=== PATIENT | female | born 1945 | race Caucasian/White ===

== ENCOUNTER 2018-11-07 08:15 | Inpatient (IN) | payer OTHER, BC ==
[2018-11-07] MEDS ORDERED: VANCOMYCIN 1 GM in D5W (PRE-DOCKED) 1,000 MG/250 ML IVPB ONE (08:31)
[2018-11-07] MEDS ORDERED: AMPICILLIN NA/SULBACTAM NA 3 GM in SODIUM CHLORIDE 100 ML IVPB ONE (08:31)
[2018-11-07] MEDS ORDERED: HEMOQUE TEST 1 EACH EACH ONE ×2 (08:35→08:45)
[2018-11-07] MEDS ORDERED: HEMOQUE CONTROL SOLUTION ONE (08:44)
[2018-11-07 08:59] LABS: BASO % 0.9 % (0-2.0); EOS % 0.2 % (0-4.5); HEMATOCRIT 42.7 % (32.4-45.2); HEMOGLOBIN 14.1 GM/dl (10.7-15.3); LYMPH % 12.4 % (8-40); MCH 29.9 pg (25.7-33.7); MEAN CELL VOLUME 90.7 fl (80-96); MEAN PLT VOLUME 8.6 fl (7.5-11.1); MONO % 6.9 % (3.8-10.2); NEUT % 79.6 % (42.8-82.8); PLATELET COUNT 277 K/MM3 (134-434); RBC 4.71 M/mm3 (3.60-5.2); RDW 13.2 % (11.6-15.6); WHITE BLOOD COUNT 24.8 K/mm3 (4.0-10.8)
[2018-11-07] MEDS ORDERED: AMPICILLIN NA/SULBACTAM NA 3 GM VIAL ONE (09:02)
[2018-11-07] MEDS ORDERED: VANCOMYCIN 1,000 MG VIAL (RESTRICTED TO ID ONLY) ONE (09:02)
[2018-11-07 09:11] LABS: ALK PHOS 97 U/L (32-92); ANION GAP 12 MMOL/L (8-16); BILIRUBIN,TOTAL 0.9 mg/dl (0.2-1.0); BLOOD UREA NITROGEN 11 mg/dl (7-18); CALCIUM 9.5 mg/dl (8.4-10.2); CHLORIDE 96 mmol/L (98-107); CO2 24 mmol/L (22-28); GLUCOSE,RANDOM 249 mg/dl (74-106); POTASSIUM 4.3 mmol/L (3.5-5.1); SGOT/AST 22 U/L (10-42); SGPT/ALT 22 U/L (10-40); SODIUM 132 mmol/L (136-145); TOT PROT 7.6 g/dl (6.4-8.3)
--- NOTE | 2018-11-07 09:36 | PDOC ---
History of Present Illness - General Chief Complaint: Wound Stated Complaint: boil on upper lip,cellulitis face Time Seen by Provider: 11/07/18 08:19 History Source: Patient, Family Exam Limitations: No Limitations - History of Present Illness Initial Comments: 11/07/18 09:30 CHIEF COMPLAINT: Infection on the upper lip for 4 days HISTORY OF PRESENT ILLNESS: 73-year-old female with a history of diabetes and stage I lung cancer status post resection. Patient developed a pimple on her right upper lip on . The swelling got worse, so yesterday she went to urgent care and was told of an abscess on her upper lip. She was started on Bactrim DS twice a day and was advised to go for drainage if the problem got worse. She presents today to the emergency department with progressive swelling of her upper lip, now extending to the right face. There is no difficulty breathing or swallowing. The abscess on her upper lip is tender to the touch and painful. There is no fever and no chills. The patient has diabetes and her morning blood sugar usually ranges from 100 to a little over 200. Over the last couple of days it has been around 200, likely in the setting of infection. She continues to take her oral agents for diabetes. She took 2 doses of the Bactrim yesterday, but has not yet taken it today. REVIEW OF SYSTEMS: GENERAL/CONSTITUTIONAL: No fever or chills. No weakness. No weight change. HEAD, EYES, EARS, NOSE AND THROAT: No change in vision. No ear pain or discharge. No sore throat. + Positive upper lip pain and facial swelling. See history of present illness. CARDIOVASCULAR: No chest pain or shortness of breath. RESPIRATORY: No cough, wheezing, or hemoptysis. + Positive history of stage I lung cancer, status post right lung partial resection in 2018. Being followed closely by her oncologist. Scheduled for follow-up scans. GASTROINTESTINAL: No nausea, vomiting, diarrhea or constipation. No rectal bleeding. GENITOURINARY: No dysuria, frequency, or change in urination. MUSCULOSKELETAL: No joint or muscle swelling or pain. No neck or back pain. SKIN AND BREASTS: No rash or easy bruising. + Positive facial abscess, see history of present illness. NEUROLOGIC: No headache, vertigo, loss of consciousness, or loss of sensation. No cranial nerve symptoms. PSYCHIATRIC: No depression or anxiety. ENDOCRINE: No increased thirst. No abnormal weight change. HEMATOLOGIC/LYMPHATIC: No anemia, easy bleeding, or history of blood clots. ALLERGIC/IMMUNOLOGIC: No hives or skin allergy. No latex allergy. Past History - Past Medical History Allergies/Adverse Reactions: Allergies Allergy/AdvReac Type Severity Reaction Status Date / Time aspirin AdvReac Severe Difficulty Verified 11/07/18 09:53 Breathing codeine AdvReac Severe Verified 11/07/18 09:53 peanut AdvReac Severe Difficulty Verified 11/07/18 09:53 Breathing nutrisweet AdvReac Severe Difficulty Uncoded 11/07/18 09:53 Breathing Home Medications: Ambulatory Orders Atenolol [Tenormin -] 25 mg PO DAILY 11/07/18 Cholecalciferol (Vitamin D3) [Vitamin D3] 1,000 unit PO DAILY 11/07/18 Escitalopram Oxalate [Lexapro -] 10 mg PO DAILY 11/07/18 Metformin HCl [Glucophage] 500 mg PO BID 11/07/18 Omeprazole 40 mg PO DAILY 11/07/18 Pravastatin Sodium [Pravachol] 40 mg PO DAILY 11/07/18 Sitagliptin Phosphate [Januvia] 100 mg PO DAILY 11/07/18 Sulfamethoxazole/Trimethoprim [Bactrim Ds Tablet] 1 each PO BID 11/07/18 Verapamil HCl [Verapamil ER] 2 tab PO DAILY 11/07/18 Asthma: (mediastinal mass.) Cancer: (malignant neoplasm of unsp part of bronchus or lung) Cardiac Disorders: Yes (ABNORMAL EKG,tachycardia) COPD: No Diabetes: Yes GI Disorders: Yes (GERD,benign neoplasm of stomach) HTN: Yes Psychiatric Problems: Yes (anxiety,depression,adj disorder) Lung CA: Yes (status post resection of stage I cancer) Other medical history: lung nodules multiple,,chronic cough,chronic rhinosnusitis - Suicide/Smoking/Psychosocial Hx Smoking History: Never smoked Hx Alcohol Use: No Drug/Substance Use Hx: No *Physical Exam - Vital Signs Last Vital Signs Temp Pulse Resp BP Pulse Ox 98.2 F 83 18 135/66 99 11/07/18 08:16 11/07/18 08:16 11/07/18 08:16 11/07/18 08:16 11/07/18 08:16 - Physical Exam Comments: 11/07/18 09:34 GENERAL: The patient is awake, alert, and fully oriented, in no acute distress. HEAD: Normal with no signs of trauma. EYES: Pupils equal, round and reactive to light, extraocular movements intact, sclera anicteric, conjunctiva clear. ENT: Ears normal, nares patent, oropharynx clear without exudates. Moist mucous membranes. + The upper lip has an indurated abscess on the right side with induration extending from the midline to the corner of the mouth and up to the nasal ala. There is right cheek swelling without any induration or fluctuance. NECK: Normal range of motion, supple without lymphadenopathy, JVD, or masses. LUNGS: Breath sounds equal, clear to auscultation bilaterally. No wheezes, and no crackles. HEART: Regular rate and rhythm, normal S1 and S2 without murmur, rub or gallop. ABDOMEN: Soft, nontender, normoactive bowel sounds. No guarding, no rebound. No masses. EXTREMITIES: Normal range of motion, no edema. No clubbing or cyanosis. No cords, erythema, or tenderness. NEUROLOGICAL: Cranial nerves II through XII grossly intact. Normal speech, normal gait. PSYCH: Normal mood, normal affect. SKIN: Warm, Dry, normal turgor, no rashes or lesions noted. + Positive redness of the right face and swelling of the right upper lip with focal right lip abscess. Moderate Sedation - Procedure Monitoring Vital Signs: Procedure Monitoring Vital Signs Temperature 98.2 F 11/07/18 08:16 Pulse Rate 83 11/07/18 08:16 Respiratory Rate 18 11/07/18 08:16 Blood Pressure 135/66 11/07/18 08:16 O2 Sat by Pulse Oximetry (%) 99 11/07/18 08:16 Heart Score/ECG Review - ECG Impressions Comment:: 11/07/18 10:02 Twelve-lead EKG shows normal sinus rhythm at a rate of 64 bpm. The axis is normal. The intervals are normal. There is poor R wave progression from V1 to V3. There are no acute ST elevations or depressions. There are no abnormal T waves. In comparison with prior EKG from 04/23/2010, there are no acute changes. Impression: Normal sinus rhythm with poor R-wave progression, no new acute findings. ED Treatment Course - LABORATORY CBC & Chemistry Diagram: 11/07/18 08:40 11/07/18 08:40 - ADDITIONAL ORDERS Additional order review: Laboratory Results 11/07/18 11/07/18 08:52 08:40 Sodium 132 L Potassium 4.3 Chloride 96 L Carbon Dioxide 24 Anion Gap 12 BUN 11 Creatinine 1.0 Creat Clearance w eGFR 54.35 POC Glucometer [phone] Random Glucose 249 H Calcium 9.5 Total Bilirubin 0.9 AST 22 ALT 22 Alkaline Phosphatase 97 H Total Protein 7.6 Albumin 4.0 11/07/18 11/07/18 08:52 08:40 RBC 4.71 MCV 90.7 MCHC 33.0 RDW 13.2 MPV 8.6 Neutrophils % 79.6 Lymphocytes % 12.4 Monocytes % 6.9 Eosinophils % 0.2 Basophils % 0.9 POC Glucometer [phone] - Medications Given in the ED: ED Medications Discontinued Medications Generic Name Dose Route Start Last Admin Trade Name Freq PRN Reason Stop Dose Admin Ampicillin Sodium/Sulbactam 100 mls @ 200 mls/hr 11/07/18 08:31 11/07/18 09: 09 Sodium 3 gm/ Sodium Chloride IVPB 11/07/18 09:00 200 mls/hr ONCE ONE Administration Medical Decision Making - Medical Decision Making 11/07/18 09:36 Patient is a 73-year-old diabetic who presents with a right upper lip abscess that has failed oral antibiotics with Bactrim DS. She presents now with progressive swelling of the lip and the right face. Her diabetes increases the risks of this infection, along with the risks of the triangle of danger for infection of the face. Labs drawn to check white count and glucose. Patient failed oral antibiotics with progression. IV antibiotics ordered with Unasyn and vancomycin. Plastic surgery called and has arrived in the ED for incision and drainage of the abscess. Wound culture will be done of the pus at the time of the procedure. Given the patient's progression on oral antibiotics, she will be admitted for observation and IV antibiotics. Wound culture performed and sent to the lab. No blood cultures or lactate done because the likelihood of bacteremia is much lower than the likelihood of false positive blood cultures. 11/07/18 09:52 Labs notable for glucose of 249 and WBC of 24k, consistent with bacterial abscess and facial cellulitis. Anion gap is normal at 12. Sodium is mildly low and will be followed. I and D was completed by plastic surgeon Dr. Freeman, and all are in agreement that admission is indicated for facial cellultitis with swelling in the danger zone of the face that failed oral antibiotics. Laboratory Results - last 24 hr 11/07/18 11/07/18 11/07/18 08:40 08:40 08:52 WBC 24.8 H RBC 4.71 Hgb 14.1 Hct 42.7 MCV 90.7 MCH 29.9 MCHC 33.0 RDW 13.2 Plt Count 277 MPV 8.6 Absolute Neuts (auto) 19.8 Neutrophils % 79.6 Lymphocytes % 12.4 Monocytes % 6.9 Eosinophils % 0.2 Basophils % 0.9 Sodium 132 L Potassium 4.3 Chloride 96 L Carbon Dioxide 24 Anion Gap 12 BUN 11 Creatinine 1.0 Creat Clearance w eGFR 54.35 POC Glucometer [phone] Random Glucose 249 H Calcium 9.5 Total Bilirubin 0.9 AST 22 ALT 22 Alkaline Phosphatase 97 H Total Protein 7.6 Albumin 4.0 *DC/Admit/Observation/Transfer Diagnosis at time of Disposition: Facial abscess, Facial cellulitis - Discharge Dispostion Condition at time of disposition: Stable Decision to Admit order: Yes Decision to Admit order Date/Time: 11/07/18 10:[address] Gil, endorsed to hospitalist [employer]ADER - Referrals - Patient Instructions - Post Discharge Activity
[2018-11-07] MEDS: SODIUM CHLORIDE 1,000 ML IV SCH (11:13)
[2018-11-07 11:58] VITALS: BMI 32.8
[2018-11-07] MEDS: INSULIN SLIDING SCALE (NOVOLOG) 1 VIAL SQ SCH ×3 (12:07→21:27)
[2018-11-07] MEDS: HEPARIN NA (PORCINE) 5,000 UNITS/ML 1ML VIAL SQ SCH ×2 (12:08→21:28)
[2018-11-07] MEDS ORDERED: INSULIN (LEVEMIR) 100 UNITS/ML UNITS SQ ONE (12:33)
--- NOTE | 2018-11-07 12:56 | HP ---
CHIEF COMPLAINT: right facial swelling, PCP: Dr. Kurtz HISTORY OF PRESENT ILLNESS: Bettina Leigh is a 73 yr old F, medical condition DM, HTN, anxiety, stage 1 lung cancer, HLD presented to ED after waking up this morning, had right sided facial swelling and redness. pt reports right upper lip pimple that started on , went to UC yesterday and was prescribed Bactrim. pt denies fevers, chills , itching or pain. Seen by Dr. Freeman, Plastics, abscess I&D in ED, wound cultures sent to lab, pt admitted under obs for IV ABT, pt clinically feeling well ER course was notable for: (1)Abscess of right upper lip drained (2)WBC 24.8 (3)no fever Recent Travel: PAST MEDICAL HISTORY:DM, Stage 1 Lung Ca, anxiety PAST SURGICAL HISTORY:lung resection summer 2017 Social History: Smoking:denies Alcohol:denies Drugs: denies Family History: Allergies aspirin Adverse Reaction (Severe, Verified 11/07/18 09:53) Difficulty Breathing throat closes codeine Adverse Reaction (Severe, Verified 11/07/18 09:53) PALPITATIONS peanut Adverse Reaction (Severe, Verified 11/07/18 09:53) Difficulty Breathing THROAT CLOSES S nutrisweet Adverse Reaction (Severe, Uncoded 11/07/18 09:53) Difficulty Breathing THROAT CLOSES HOME MEDICATIONS: Home Medications Medication Instructions Recorded Atenolol [Tenormin -] 25 mg PO DAILY 11/07/18 Cholecalciferol (Vitamin D3) 1,000 unit PO DAILY 11/07/18 [Vitamin D3] Escitalopram Oxalate [Lexapro -] 10 mg PO DAILY 11/07/18 Metformin HCl [Glucophage] 500 mg PO BID 11/07/18 Omeprazole 40 mg PO DAILY 11/07/18 Pravastatin Sodium [Pravachol] 40 mg PO DAILY 11/07/18 Sitagliptin Phosphate [Januvia] 100 mg PO DAILY 11/07/18 Sulfamethoxazole/Trimethoprim 1 each PO BID 11/07/18 [Bactrim Ds Tablet] Verapamil HCl [Verapamil ER] 2 tab PO DAILY 11/07/18 REVIEW OF SYSTEMS CONSTITUTIONAL: Absent: fever, chills, diaphoresis, generalized weakness, malaise, loss of appetite, weight change HEENT: Absent: rhinorrhea, nasal congestion, throat pain, throat swelling, difficulty swallowing, mouth swelling, ear pain, eye pain, visual changes CARDIOVASCULAR: Absent: chest pain, syncope, palpitations, irregular heart rate, lightheadedness , peripheral edema RESPIRATORY: Absent: cough, shortness of breath, dyspnea with exertion, orthopnea, wheezing, stridor, hemoptysis GASTROINTESTINAL: Absent: abdominal pain, abdominal distension, nausea, vomiting, diarrhea, constipation, melena, hematochezia GENITOURINARY: Absent: dysuria, frequency, urgency, hesitancy, hematuria, flank pain, genital pain MUSCULOSKELETAL: Absent: myalgia, arthralgia, joint swelling, back pain, neck pain SKIN: swelling and redness right side of face, upper lip no itching or pain Absent: rash, itching, pallor HEMATOLOGIC/IMMUNOLOGIC: Absent: easy bleeding, easy bruising, lymphadenopathy, frequent infections ENDOCRINE: Absent: unexplained weight gain, unexplained weight loss, heat intolerance, cold intolerance NEUROLOGIC: Absent: headache, focal weakness or paresthesias, dizziness, unsteady gait, seizure, mental status changes, bladder or bowel incontinence PSYCHIATRIC: Absent: anxiety, depression, suicidal or homicidal ideation, hallucinations. PHYSICAL EXAMINATION Vital Signs - 24 hr 11/07/18 11/07/18 11/07/18 08:16 11:10 11:41 Temperature 98.2 F 98.9 F 99.2 F Pulse Rate 83 76 Pulse Rate [ 67 Left] Respiratory 18 18 Rate Blood Pressure 135/66 150/70 Blood Pressure 126/58 L [Right Arm] O2 Sat by Pulse 99 96 97 Oximetry (%) 11/07/18 12:30 Temperature 99.0 F Pulse Rate 89 Pulse Rate [ Left] Respiratory 18 Rate Blood Pressure 114/51 L Blood Pressure [Right Arm] O2 Sat by Pulse 99 Oximetry (%) GENERAL: Awake, alert, and fully oriented, in no acute distress. HEAD: Normal with no signs of trauma. EYES: Pupils equal, round and reactive to light, extraocular movements intact, sclera anicteric, conjunctiva clear. No lid lag. EARS, NOSE, THROAT: Ears normal, nares patent, oropharynx clear without exudates. Moist mucous membranes. NECK: Normal range of motion, supple without lymphadenopathy, JVD, or masses. LUNGS: Breath sounds equal, clear to auscultation bilaterally. No wheezes, and no crackles. No accessory muscle use. HEART: Regular rate and rhythm, normal S1 and S2 without murmur, rub or gallop. ABDOMEN: Soft, nontender, not distended, normoactive bowel sounds, no guarding, no rebound, no masses. No hepatomegaly or splenomegaly. MUSCULOSKELETAL: Normal range of motion at all joints. No bony deformities or tenderness. No CVA tenderness. UPPER EXTREMITIES: 2+ pulses, warm, well-perfused. No cyanosis. No clubbing. No peripheral edema. LOWER EXTREMITIES: 2+ pulses, warm, well-perfused. No calf tenderness. No peripheral edema. NEUROLOGICAL: Cranial nerves II-XII intact. Normal speech. Normal gait. PSYCHIATRIC: Cooperative. Good eye contact. Appropriate mood and affect. SKIN: right upper lip wound s/p I&D, Warm, dry, normal turgor, no rashes or lesions noted, normal capillary refill. Laboratory Results - last 24 hr 11/07/18 11/07/18 11/07/18 08:40 08:40 08:52 WBC 24.8 H RBC 4.71 Hgb 14.1 Hct 42.7 MCV 90.7 MCH 29.9 MCHC 33.0 RDW 13.2 Plt Count 277 MPV 8.6 Absolute Neuts (auto) 19.8 Neutrophils % 79.6 Lymphocytes % 12.4 Monocytes % 6.9 Eosinophils % 0.2 Basophils % 0.9 Sodium 132 L Potassium 4.3 Chloride 96 L Carbon Dioxide 24 Anion Gap 12 BUN 11 Creatinine 1.0 Creat Clearance w eGFR 54.35 POC Glucometer [phone] Random Glucose 249 H Calcium 9.5 Total Bilirubin 0.9 AST 22 ALT 22 Alkaline Phosphatase 97 H Total Protein 7.6 Albumin 4.0 ASSESSMENT/PLAN: Bettina Leigh is a 73 yr old F,medical condition DM, HTN, HLD, anxiety, stage 1 Lung cancer, admitted under observation for Admitting Diagnosis Right sided facial cellulitis Chronic problems HTN HLD DM Anxiety Stage 1 lung cancer A/P #Right sided facial cellulitis/ upper lip abscess -WBC 24.8, afebrile, -in ED Unasyn and Vanc given -will start Zosyn 3.375 q8hrs (unasyn on back order) -s/p I& D (Dr. Freeman) -wound culture pending -will check lactic #Hyponatremia -IVF -monitor BMP #DM, with hyperglycemia -hold home meds -ISC -Monitor BS -diabetic diet #HTN #HLD -on BB, Verapamil , statin #Stage 1 Lung Ca s/p resection -follows with Dr. Rodriguez -follow up outpt #Anxiety -on lexapro Full Code Dispo: requires inpatient treatment DVT prophlyaxis: Heparin SQ Visit type - Emergency Visit Emergency Visit: Yes ED Registration Date: 11/07/18 Care time: The patient presented to the Emergency Department on the above date and was hospitalized for further evaluation of their emergent condition. - New Patient This patient is new to me today: Yes Date on this admission: 11/07/18 - Critical Care Critical Care patient: No
[2018-11-07] MEDS: PANTOPRAZOLE 40 MG TABLET (FP) PO SCH (13:09)
[2018-11-07] MEDS ORDERED: PIPERACILLIN/TAZOBACTAM 3.375 GM VIAL IVPB ONE (17:10)
[2018-11-07] MEDS ORDERED: DEXTROSE 5%-WATER - 50 ML IVPB ONE (17:10)
[2018-11-07] MEDS: PIPERACILLIN/TAZOB 3.375 GM 3.375 GM in DEXTROSE 5%-WATER - 50 ML IVPB SCH (17:28)
--- NOTE | 2018-11-07 19:38 | EKG ---
Test Reason : Blood Pressure : / mmHG Vent. Rate : 064 BPM Atrial Rate : 064 BPM P-R Int : 148 ms QRS Dur : 084 ms QT Int : 454 ms P-R-T Axes : 039 050 068 degrees QTc Int : 468 ms NORMAL SINUS RHYTHM SEPTAL INFARCT (CITED ON OR BEFORE 24-JUL-2008) ABNORMAL ECG WHEN COMPARED WITH ECG OF 23-APR-2010 10:25, NO SIGNIFICANT CHANGE WAS FOUND Confirmed by CHANTELLE BRAGG, AURELIANO ([id number]) on 11/07/2018 7:37:53 PM Referred By: JUDY BALLARD Confirmed By:AURELIANO LOCKHART MD
[2018-11-07] MEDS ORDERED: AMPICILLIN NA/SULBACTAM NA 3 GM in SODIUM CHLORIDE 100 ML IVPB SCH (21:00)
[2018-11-07] MEDS: ATORVASTATIN CA 10 MG TABLET (FP) PO SCH (21:28)
[2018-11-07] MEDS ORDERED: HEPARIN NA (PORCINE) 5,000 UNITS/ML 1ML VIAL SQ SCH (22:00)
[2018-11-08] MEDS ORDERED: PIPERACILLIN/TAZOBACTAM 3.375 GM VIAL IVPB ONE ×3 (01:17→17:06)
[2018-11-08] MEDS ORDERED: DEXTROSE 5%-WATER - 50 ML IVPB ONE ×3 (01:18→17:06)
[2018-11-08] MEDS: PIPERACILLIN/TAZOB 3.375 GM 3.375 GM in DEXTROSE 5%-WATER - 50 ML IVPB SCH ×3 (01:23→17:16)
[2018-11-08] MEDS: INSULIN SLIDING SCALE (NOVOLOG) 1 VIAL SQ SCH ×4 (06:56→22:42)
[2018-11-08 08:54] LABS: BASO % 0.3 % (0-2.0); EOS % 1.1 % (0-4.5); HEMATOCRIT 35.2 % (32.4-45.2); HEMOGLOBIN 11.8 GM/dl (10.7-15.3); LYMPH % 20.1 % (8-40); MCH 30.2 pg (25.7-33.7); MCHC 33.6 g/dl (32.0-36.0); MEAN CELL VOLUME 89.9 fl (80-96); MEAN PLT VOLUME 8.9 fl (7.5-11.1); MONO % 8.6 % (3.8-10.2); NEUT % 69.9 % (42.8-82.8); PLATELET COUNT 206 K/MM3 (134-434); RBC 3.91 M/mm3 (3.60-5.2); RDW 13.5 % (11.6-15.6); WHITE BLOOD COUNT 12.7 K/mm3 (4.0-10.8)
[2018-11-08 09:35] LABS: ALBUMIN 3.2 g/dl (3.5-5.0); ALK PHOS 81 U/L (32-92); ANION GAP 8 MMOL/L (8-16); BILIRUBIN,TOTAL 0.8 mg/dl (0.2-1.0); BLOOD UREA NITROGEN 12 mg/dl (7-18); CALCIUM 8.6 mg/dl (8.4-10.2); CHLORIDE 101 mmol/L (98-107); CO2 26 mmol/L (22-28); CREATININE 0.8 mg/dl (0.6-1.3); GLUCOSE,RANDOM 153 mg/dl (74-106); MAGNESIUM 1.8 mg/dL (1.8-2.4); POTASSIUM 4.5 mmol/L (3.5-5.1); SGOT/AST 22 U/L (10-42); SGPT/ALT 24 U/L (10-40); SODIUM 135 mmol/L (136-145); TOT PROT 6.3 g/dl (6.4-8.3)
[2018-11-08] MEDS ORDERED: PT OWN MED DRAWER 7, Y5N ONE (09:52)
[2018-11-08] MEDS: HEPARIN NA (PORCINE) 5,000 UNITS/ML 1ML VIAL SQ SCH ×2 (10:10→21:26)
[2018-11-08] MEDS: ATENOLOL 25 MG TABLET (FP) PO SCH (10:11)
[2018-11-08] MEDS: ESCITALOPRAM OXALATE 10 MG TABLET (FP) PO SCH (10:11)
[2018-11-08] MEDS: SODIUM CHLORIDE 1,000 ML IV SCH (10:11)
[2018-11-08] MEDS: PANTOPRAZOLE 40 MG TABLET (FP) PO SCH (10:11)
[2018-11-08] MEDS: VERAPAMIL HCL 180 MG E.R. TABLET (FP) PO SCH (11:07)
[2018-11-08] MEDS: VANCOMYCIN 1 GRAM (PRE-DOCKED) 1,000 MG/250 ML BAG IVPB SCH ×2 (11:53→23:14)
--- NOTE | 2018-11-08 13:29 | PN ---
Physical Exam: SUBJECTIVE: Patient seen and examined at bedside. No difficulty breathing or swallowing. Does not complain of pain. OBJECTIVE: Vital Signs Period Temp Pulse Resp BP Sys/Grady Pulse Ox Last 24 Hr 98.4 F-99.6 F 66-81 18-18 110-142/43-60 98-99 GENERAL: The patient is awake, alert, and fully oriented, in no acute distress. HEAD: Focal right upper lip lesion is dry, no drainage, I&D edges well- approximated; swelling and redness to red cheek without induration or fluctuance ; no periorbital involvement; no dental involvement EYES: PERRL, extraocular movements intact, sclera anicteric, conjunctiva clear. No ptosis. ENT: Ears normal, nares patent, oropharynx clear without exudates, moist mucous membranes. LUNGS: Breath sounds equal, clear to auscultation bilaterally, no wheezes, no crackles, no accessory muscle use. HEART: Regular rate and rhythm, S1, S2 ABDOMEN: Soft, nontender, nondistended EXTREMITIES: 2+ pulses, warm, well-perfused, no edema. NEUROLOGICAL: Cranial nerves II through XII grossly intact. Normal speech, gait not observed. Laboratory Results - last 24 hr 11/07/18 11/07/18 11/08/18 16:28 21:26 06:50 WBC RBC Hgb Hct MCV MCH MCHC RDW Plt Count MPV Absolute Neuts (auto) Neutrophils % Lymphocytes % Monocytes % Eosinophils % Basophils % Sodium Potassium Chloride Carbon Dioxide Anion Gap BUN Creatinine Creat Clearance w eGFR POC Glucometer 115 197 142 Random Glucose Calcium Magnesium Total Bilirubin AST ALT Alkaline Phosphatase Total Protein Albumin 11/08/18 11/08/18 11/08/18 07:00 07:00 11:53 WBC 12.7 H RBC 3.91 Hgb 11.8 Hct 35.2 D MCV 89.9 MCH 30.2 MCHC 33.6 RDW 13.5 Plt Count 206 MPV 8.9 Absolute Neuts (auto) 8.9 Neutrophils % 69.9 Lymphocytes % 20.1 Monocytes % 8.6 Eosinophils % 1.1 Basophils % 0.3 Sodium 135 L Potassium 4.5 Chloride 101 Carbon Dioxide 26 Anion Gap 8 BUN 12 Creatinine 0.8 Creat Clearance w eGFR > 60 POC Glucometer 138 Random Glucose 153 H D Calcium 8.6 Magnesium 1.8 Total Bilirubin 0.8 AST 22 ALT 24 Alkaline Phosphatase 81 D Total Protein 6.3 L Albumin 3.2 L Active Medications Generic Name Dose Route Start Last Admin Trade Name Freq PRN Reason Stop Dose Admin Atenolol 25 mg 11/08/18 10:00 11/08/18 10:11 Tenormin - PO 25 mg DAILY R[facility]T Administration Atorvastatin Calcium 10 mg 11/07/18 22:00 11/07/18 21:28 Lipitor - PO 10 mg HS [facility] Administration Escitalopram Oxalate 10 mg 11/08/18 10:00 11/08/18 10:11 Lexapro - PO 10 mg DAILY [facility] Administration Heparin Sodium (Porcine) 5,000 unit 11/07/18 11:30 11/08/18 10:10 Heparin - SQ 5,000 unit BID [facility] Administration Sodium Chloride 1,000 mls @ 75 mls/hr 11/07/18 10:45 11/08/18 10:11 Normal Saline - IV 75 mls/hr ASDIR ROO[facility]VELT Administration Piperacillin Sod/Tazobactam 50 mls @ 100 mls/hr 11/07/18 18:00 11/08/18 10:11 Sod 3.375 gm/ Dextrose IVPB 100 mls/hr Q8H-IV [facility] Administration Protocol Vancomycin HCl 1,000 mg in 250 mls @ 166.667 mls/hr 11/08/18 12:00 11/08/18 11:53 Vancomycin (Pre-Docked) IVPB 166.667 mls/hr BID@0000,1200 [facility] Administration Protocol Insulin Aspart 1 vial 11/07/18 11:00 11/08/18 11:54 Novolog Vial Sliding Scale - SQ Not Given ACHS [facility] Protocol Pantoprazole Sodium 40 mg 11/07/18 12:45 11/08/18 10:11 Protonix - PO 40 mg DAILY [facility] Administration Verapamil HCl 360 mg 11/08/18 10:00 11/08/18 11:07 Calan Sr - PO 360 mg DAILY [facility]T Administration ASSESSMENT/PLAN 73 year-old female with a PMH significant for HTN, HLD, Type II NIDDM, stage I lung cancer s/p resection, and anxiety. Admitted for a presumptive MRSA lip abscess and facial cellulitis after failing outpatient PO antibiotic therapy. Presumptive MRSA right upper lip abscess Right facial cellulitis --WBC 24.8k on admission, today 12.7k; afebrile --abscess I&D's by plastics in ED --culture (+) presumptive MRSA --contniue vanc and zosyn --ID following Type II NIDDM --continue oral agents --Novolog sliding scale coverage Hypertension --continue atenolol, verapamil Hyperlipidemia --continue Lipitor Stage I lung cancer --stable Anxiety --continue Lexapro FEN Fluids: PO intake adequate Electrolytes: replete as indicated Nutrition: low sodium, diabetic DVT prophylaxis: subq heparin Dispo: continues to require inpatient care. Full code. Visit type - Emergency Visit Emergency Visit: Yes ED Registration Date: 11/08/18 Care time: The patient presented to the Emergency Department on the above date and was hospitalized for further evaluation of their emergent condition. - New Patient This patient is new to me today: Yes Date on this admission: 11/08/18 - Critical Care Critical Care patient: No
[2018-11-08] MEDS: metFORMIN HCL 500 MG TABLET (FP) PO SCH (18:10)
[2018-11-08] MEDS: ATORVASTATIN CA 10 MG TABLET (FP) PO SCH (21:26)
[2018-11-09] MEDS ORDERED: PIPERACILLIN/TAZOBACTAM 3.375 GM VIAL IVPB ONE ×2 (01:31→09:02)
[2018-11-09] MEDS ORDERED: DEXTROSE 5%-WATER - 50 ML IVPB ONE ×2 (01:31→09:03)
[2018-11-09] MEDS: PIPERACILLIN/TAZOB 3.375 GM 3.375 GM in DEXTROSE 5%-WATER - 50 ML IVPB SCH ×2 (01:44→09:09)
[2018-11-09] MEDS: metFORMIN HCL 500 MG TABLET (FP) PO SCH ×2 (06:17→16:29)
[2018-11-09] MEDS: INSULIN SLIDING SCALE (NOVOLOG) 1 VIAL SQ SCH ×4 (06:17→23:01)
[2018-11-09] MEDS: sitaGLIPtin PHOSPHATE 50 MG TABLET PO SCH (06:17)
--- NOTE | 2018-11-09 08:57 | PN ---
Progress Note (short form) - Note Progress Note: This is a follow-up after seeing this patient 11/07/2018 in the ER. Cellulitis and swelling of the right side upper lip and right cheek is dramatically improved. Swelling is now just limited to the upper lip and appears to be resolving. No further surgical management is indicated. Thank you.
[2018-11-09] MEDS ORDERED: PT OWN MED DRAWER 7, Y5N ONE (09:02)
[2018-11-09] MEDS: ESCITALOPRAM OXALATE 10 MG TABLET (FP) PO SCH (09:09)
[2018-11-09] MEDS: PANTOPRAZOLE 40 MG TABLET (FP) PO SCH (09:09)
[2018-11-09] MEDS: HEPARIN NA (PORCINE) 5,000 UNITS/ML 1ML VIAL SQ SCH ×2 (09:10→21:14)
[2018-11-09] MEDS: VERAPAMIL HCL 180 MG E.R. TABLET (FP) PO SCH (09:10)
[2018-11-09] MEDS: ATENOLOL 25 MG TABLET (FP) PO SCH (09:12)
--- NOTE | 2018-11-09 10:38 | PN ---
Progress Note (short form) - Note Progress Note: ID CONSULT DICTATED R FACIAL ABSCESS/ R FACIAL CELLULITIS MARKED LEUKOCYTOSIS R/O SEPSIS SECONDARY TO SKIN SOURCE DIABETES MELLITUS AWAIT C/S RESULT CONTINUE EMPIRIC VANCOMYCIN
--- NOTE | 2018-11-09 11:15 | CONS ---
DATE OF CONSULTATION: DATE OF DICTATION: 11/09/2018 HISTORY: The patient is a 73-year-old diabetic female who was evaluated for facial abscess and cellulitis. The patient states she developed a pustular lesion on her right upper lip on or about October. It became progressively worse with increased lip swelling and facial erythema. She presented to an urgent care center on Tuesday, November 06, 2018. She was prescribed Bactrim. Despite taking Bactrim, she awoke from sleep on November 07 with marked swelling and redness of the right upper lip and right malar area. She presented to the emergency room where she was noted to have a marked leukocytosis and elevated blood sugar. An incision and drainage was performed in the emergency room by Plastic Surgery. Culture results preliminarily showing MRSA. She was empirically treated with vancomycin and Zosyn. Since her admission, she has had significant improvement in the right facial cellulitis with decreased swelling and erythema. She continues to have a residual area of swelling of the right upper lip and right nasolabial fold. The patient denied any associated fever or chills. She denies prior history of serious soft tissue infection requiring hospitalization or history of MRSA. PAST MEDICAL HISTORY: Positive for diabetes mellitus, lung cancer, gastroesophageal reflux, hypertension, hyperlipidemia. PAST SURGICAL HISTORY: Status post resection of lung nodule. ALLERGIES: ASPIRIN and CODEINE. MEDICATIONS: Atenolol, Lexapro, Glucophage, omeprazole, Pravachol, Januvia, verapamil. SOCIAL HISTORY: She is retired. 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 She is a nonsmoker, nondrinker. SYSTEMS REVIEW: Neurologic: No loss of consciousness, seizure activity, focal weakness. Cardiac: Negative chest pain or palpitations. Respiratory: Negative for cough or sputum production. Gastrointestinal: Negative vomiting or diarrhea. Genitourinary: Negative for urinary tract infection. LABORATORY DATA: White count on admission 24.8, presently 12.7, hematocrit 35.2, platelets 206, BUN 12, creatinine 0.8. Blood cultures pending. Wound culture preliminarily MRSA. PHYSICAL EXAMINATION: General: She is awake and alert. She is in no acute distress. Breathing is nonlabored. Vital Signs: Temperature 98.4, blood pressure 127/49, pulse 68 and regular, respirations 18 per minute. HEENT: Sclerae anicteric. Examination of the face, there is swelling of the right upper lip extending to the nasolabial fold and to the right malar area. There is erythema, warmth, and swelling. Tenderness to palpation. No expressible pus. Neck: Supple. Positive right submandibular lymph nodes. Heart: S1, S2. Lungs: Clear. No rales, rhonchi, or wheezing. No stridor or wheeze. Abdomen: Soft. Nontender. Extremities: Negative for edema. IMPRESSION: 1. Right facial abscess/right facial cellulitis. 2. Marked leukocytosis, rule out sepsis secondary to skin source. 3. Diabetes mellitus. PLAN: Await wound culture results. Continue empiric vancomycin. Warm compresses p.r.n. Follow up CBC. Thank you for the kind referral. LENIN TORO M.D. [id number]
[2018-11-09] MEDS: VANCOMYCIN 1 GRAM (PRE-DOCKED) 1,000 MG/250 ML BAG IVPB SCH ×2 (12:25→23:20)
--- NOTE | 2018-11-09 17:48 | PN ---
Physical Exam: SUBJECTIVE: Patient seen and examined at bedside. Feels there is a second emerging lesion on the upper lip. No difficulty swallowing. Walked in hallway OBJECTIVE: Vital Signs Period Temp Pulse Resp BP Sys/Grady Pulse Ox Last 24 Hr 98.4 F-98.7 F 52-69 17-18 91-138/49-58 98-100 GENERAL: The patient is awake, alert, and fully oriented, in no acute distress. HEAD: Focal right upper lip lesion has small amount of green pus; just medial to this lesion is a very small pustule not seen previously; right cheek swelling and erythema almost completely resolved ENT: Tender submandibular lymph nodes bilaterally LUNGS: CTA HEART: Regular rate and rhythm, S1, S2 ABDOMEN: Soft, nontender, nondistended EXTREMITIES: 2+ pulses, warm, well-perfused, no edema. NEUROLOGICAL: Cranial nerves II through XII grossly intact. Normal speech, gait not observed. CBCD WBC 12.7 K/mm3 (4.0-10.8) H 11/08/18 07:00 RBC 3.91 M/mm3 (3.60-5.2) 11/08/18 07:00 Hgb 11.8 GM/dl (10.7-15.3) 11/08/18 07:00 Hct 35.2 % (32.4-45.2) D 11/08/18 07:00 MCV 89.9 fl (80-96) 11/08/18 07:00 MCHC 33.6 g/dl (32.0-36.0) 11/08/18 07:00 RDW 13.5 % (11.6-15.6) 11/08/18 07:00 Plt Count 206 K/MM3 (134-434) 11/08/18 07:00 MPV 8.9 fl (7.5-11.1) 11/08/18 07:00 CMP Sodium 135 mmol/L (136-145) L 11/08/18 07:00 Potassium 4.5 mmol/L (3.5-5.1) 11/08/18 07:00 Chloride 101 mmol/L (98-107) 11/08/18 07:00 Carbon Dioxide 26 mmol/L (22-28) 11/08/18 07:00 Anion Gap 8 MMOL/L (8-16) 11/08/18 07:00 BUN 12 mg/dl (7-18) 11/08/18 07:00 Creatinine 0.8 mg/dl (0.6-1.3) 11/08/18 07:00 Creat Clearance w eGFR > 60 (>60) 11/08/18 07:00 Calcium 8.6 mg/dl (8.4-10.2) 11/08/18 07:00 Total Bilirubin 0.8 mg/dl (0.2-1.0) 11/08/18 07:00 AST 22 U/L (10-42) 11/08/18 07:00 ALT 24 U/L (10-40) 11/08/18 07:00 Alkaline Phosphatase 81 U/L (32-92) D 11/08/18 07:00 Total Protein 6.3 g/dl (6.4-8.3) L 11/08/18 07:00 Albumin 3.2 g/dl (3.5-5.0) L 11/08/18 07:00 Active Medications Generic Name Dose Route Start Last Admin Trade Name Loyda PRN Reason Stop Dose Admin Atenolol 25 mg 11/08/18 10:00 11/09/18 09:12 Tenormin - PO Not Given DAILY [facility] Atorvastatin Calcium 10 mg 11/07/18 22:00 11/08/18 21:26 Lipitor - PO 10 mg HS [facility] Administration Escitalopram Oxalate 10 mg 11/08/18 10:00 11/09/18 09:09 Lexapro - PO 10 mg DAILY [facility] Administration Heparin Sodium (Porcine) 5,000 unit 11/07/18 11:30 11/09/18 09:10 Heparin - SQ 5,000 unit BID [facility] Administration Vancomycin HCl 1,000 mg in 250 mls @ 166.667 mls/hr 11/08/18 12:00 11/09/18 12:25 Vancomycin (Pre-Docked) IVPB 166.667 mls/hr BID@0000,1200 [facility] Administration Protocol Insulin Aspart 1 vial 11/08/18 22:00 11/09/18 16:28 Novolog Vial Sliding Scale - SQ Not Given ACHS [facility] Protocol Metformin HCl 500 mg 11/08/18 17:30 11/09/18 16:29 Glucophage - PO 500 mg BIDAC [facility] Administration Pantoprazole Sodium 40 mg 11/07/18 12:45 11/09/18 09:09 Protonix - PO 40 mg DAILY [facility] Administration Sitagliptin Phosphate 100 mg 11/09/18 07:00 11/09/18 06:17 Januvia - PO 100 mg AM [facility] Administration Verapamil HCl 360 mg 11/08/18 10:00 11/09/18 09:10 Calan Sr - PO 360 mg DAILY [facility] Administration ASSESSMENT/PLAN 73 year-old female with a PMH significant for HTN, HLD, Type II NIDDM, stage I lung cancer s/p resection, and anxiety. Admitted for a presumptive MRSA lip abscess and facial cellulitis after failing outpatient PO antibiotic therapy. MRSA right upper lip abscess Right facial cellulitis --WBC 24.8k on admission, today 12.7k; afebrile --abscess I&D's by plastics in ED --culture (+) MRSA --contniue vanc; vanc trough before next dose --ID following Type II NIDDM --continue oral agents --Novolog sliding scale coverage Hypertension --continue atenolol, verapamil Hyperlipidemia --continue Lipitor Stage I lung cancer --stable Anxiety --continue Lexapro FEN Fluids: PO intake adequate Electrolytes: replete as indicated Nutrition: low sodium, diabetic DVT prophylaxis: subq heparin Dispo: continues to require inpatient care. Full code. Visit type - Emergency Visit Emergency Visit: Yes ED Registration Date: 11/08/18 Care time: The patient presented to the Emergency Department on the above date and was hospitalized for further evaluation of their emergent condition. - New Patient This patient is new to me today: No - Critical Care Critical Care patient: No
[2018-11-09] MEDS: ATORVASTATIN CA 10 MG TABLET (FP) PO SCH (21:14)
[2018-11-10] MEDS: sitaGLIPtin PHOSPHATE 50 MG TABLET PO SCH (06:20)
[2018-11-10] MEDS: metFORMIN HCL 500 MG TABLET (FP) PO SCH (06:20)
[2018-11-10 08:01] LABS: ALK PHOS 77 U/L (45-117); ANION GAP 8 MMOL/L (8-16); BILIRUBIN,TOTAL 0.6 mg/dl (0.2-1); BLOOD UREA NITROGEN 14 mg/dl (7-18); CALCIUM 8.9 mg/dl (8.5-10); CHLORIDE 101 mmol/L (98-107); CO2 26 mmol/L (21-32); CREATININE 0.9 mg/dl (0.55-1.3); GLUCOSE,RANDOM 137 mg/dl (74-106); MAGNESIUM 1.7 mg/dL (1.8-2.4); POTASSIUM 4.9 mmol/L (3.5-5.1); SGOT/AST 19 U/L (15-37); SGPT/ALT 27 U/L (13-61); SODIUM 135 mmol/L (136-145)
[2018-11-10 08:02] LABS: BASO % 0.7 % (0-2.0); EOS % 4.3 % (0-4.5); HEMATOCRIT 33.3 % (32.4-45.2); HEMOGLOBIN 11.4 GM/dl (10.7-15.3); LYMPH % 28.5 % (8-40); MCH 30.3 pg (25.7-33.7); MCHC 34.1 g/dl (32.0-36.0); MEAN CELL VOLUME 88.9 fl (80-96); MEAN PLT VOLUME 8.7 fl (7.5-11.1); NEUT % 57.5 % (42.8-82.8); PLATELET COUNT 237 K/MM3 (134-434); RBC 3.74 M/mm3 (3.60-5.2); RDW 12.8 % (11.6-15.6); WHITE BLOOD COUNT 8.4 K/mm3 (4.0-10.8)
[2018-11-10] MEDS: INSULIN SLIDING SCALE (NOVOLOG) 1 VIAL SQ SCH ×2 (08:24→12:14)
[2018-11-10] MEDS ORDERED: PT OWN MED DRAWER 7, Y5N ONE (09:27)
[2018-11-10] MEDS: VERAPAMIL HCL 180 MG E.R. TABLET (FP) PO SCH (09:34)
[2018-11-10] MEDS: PANTOPRAZOLE 40 MG TABLET (FP) PO SCH (09:34)
[2018-11-10] MEDS: HEPARIN NA (PORCINE) 5,000 UNITS/ML 1ML VIAL SQ SCH (09:35)
[2018-11-10] MEDS: ESCITALOPRAM OXALATE 10 MG TABLET (FP) PO SCH (09:35)
[2018-11-10] MEDS: ATENOLOL 25 MG TABLET (FP) PO SCH (09:35)
[2018-11-10 09:36] VITALS: BP 140/61; PULSE 80; TEMP 98.6
[2018-11-10] MEDS ORDERED: MAGNESIUM OXIDE 400 MG TABLET (FP) PO ONE (10:15)
--- NOTE | 2018-11-10 10:44 | PN ---
Progress Note, Physician History of Present Illness: Awake, alert Reports less lip and facial pain, but development of new area of swelling mid upper lip Temps down Afebrile WBC improved WNL - Current Medication List Current Medications: Active Medications Atenolol (Tenormin -) 25 mg PO DAILY [facility] Last Admin: 11/10/18 09:35 Dose: Not Given Atorvastatin Calcium (Lipitor -) 10 mg PO HS [facility] Last Admin: 11/09/18 21:14 Dose: 10 mg Escitalopram Oxalate (Lexapro -) 10 mg PO DAILY [facility] Last Admin: 11/10/18 09:35 Dose: 10 mg Heparin Sodium (Porcine) (Heparin -) 5,000 unit SQ BID [facility] Last Admin: 11/10/18 09:35 Dose: 5,000 unit Vancomycin HCl (Vancomycin (Pre-Docked)) 1,000 mg in 250 mls @ 166.667 mls/hr IVPB BID@0000,1200 [facility]; Protocol Last Admin: 11/09/18 23:20 Dose: 166.667 mls/hr Insulin Aspart (Novolog Vial Sliding Scale -) 1 vial SQ ACHS [facility]; Protocol Last Admin: 11/10/18 08:24 Dose: Not Given Metformin HCl (Glucophage -) 500 mg PO BIDAC [facility] Last Admin: 11/10/18 06:20 Dose: 500 mg Pantoprazole Sodium (Protonix -) 40 mg PO DAILY [facility] Last Admin: 11/10/18 09:34 Dose: 40 mg Sitagliptin Phosphate (Januvia -) 100 mg PO AM [facility] Last Admin: 11/10/18 06:20 Dose: 100 mg Verapamil HCl (Calan Sr -) 360 mg PO DAILY [facility] Last Admin: 11/10/18 09:34 Dose: 360 mg - Objective Vital Signs: Vital Signs Temperature 98.6 F 11/10/18 09:36 Pulse Rate 80 11/10/18 09:36 Respiratory Rate 20 11/10/18 09:36 Blood Pressure 140/61 11/10/18 09:36 O2 Sat by Pulse Oximetry (%) 97 11/10/18 08:00 Constitutional: Yes: No Distress Eyes: Yes: Conjunctiva Clear HENT: Yes: Other (decreased lip and facial swelling. Approx 1cm fluctuant swelling mid lip) Cardiovascular: Yes: Regular Rate and Rhythm, S1, S2 Respiratory: Yes: CTA Bilaterally Gastrointestinal: Yes: Normal Bowel Sounds, Soft. No: Tenderness Edema: No Labs: CBC, BMP 11/10/18 07:00 11/10/18 07:00 Assessment/Plan R facial abscess/ cellulituis- improved Leukocytosis- resolved Diabetes mellitus May substitute po bactrim x7d Surgical follow up either as inpatient or outpatient later today
--- NOTE | 2018-11-10 11:48 | DS ---
Physical Exam: SUBJECTIVE: Patient seen and examined OBJECTIVE: Vital Signs Period Temp Pulse Resp BP Sys/Grady Pulse Ox Last 24 Hr 98.1 F-98.7 F 52-80 18-20 100-140/58-76 97-98 PHYSICAL EXAM GENERAL: The patient is awake, alert, and fully oriented, in no acute distress. HEAD: Focal right upper lip lesion has small amount of green pus; just medial to this lesion is a very small pustule not seen previously; right cheek swelling and erythema almost completely resolved ENT: Tender submandibular lymph nodes bilaterally LUNGS: CTA HEART: Regular rate and rhythm, S1, S2 ABDOMEN: Soft, nontender, nondistended EXTREMITIES: 2+ pulses, warm, well-perfused, no edema. NEUROLOGICAL: Cranial nerves II through XII grossly intact. Normal speech, gait not observed. LABS Laboratory Results - last 24 hr 11/09/18 11/09/18 11/09/18 11:22 11:34 16:12 WBC RBC Hgb Hct MCV MCH MCHC RDW Plt Count MPV Absolute Neuts (auto) Neutrophils % Lymphocytes % Monocytes % Eosinophils % Basophils % Sodium Potassium Chloride Carbon Dioxide Anion Gap BUN Creatinine Creat Clearance w eGFR POC Glucometer 150 135 Random Glucose Calcium Magnesium Total Bilirubin AST ALT Alkaline Phosphatase Total Protein Albumin Vancomycin Pre-Dose 15.8 L 11/09/18 11/10/18 11/10/18 21:18 06:24 07:00 WBC RBC Hgb Hct MCV MCH MCHC RDW Plt Count MPV Absolute Neuts (auto) Neutrophils % Lymphocytes % Monocytes % Eosinophils % Basophils % Sodium 135 L Potassium 4.9 Chloride 101 Carbon Dioxide 26 Anion Gap 8 BUN 14 Creatinine 0.9 Creat Clearance w eGFR > 60 POC Glucometer 136 126 Random Glucose 137 H Calcium 8.9 Magnesium 1.7 L Total Bilirubin 0.6 AST 19 ALT 27 Alkaline Phosphatase 77 Total Protein 6.0 L Albumin 3.0 L Vancomycin Pre-Dose 11/10/18 07:00 WBC 8.4 RBC 3.74 Hgb 11.4 Hct 33.3 MCV 88.9 MCH 30.3 MCHC 34.1 RDW 12.8 Plt Count 237 MPV 8.7 Absolute Neuts (auto) 4.7 Neutrophils % 57.5 Lymphocytes % 28.5 Monocytes % 9.0 Eosinophils % 4.3 Basophils % 0.7 Sodium Potassium Chloride Carbon Dioxide Anion Gap BUN Creatinine Creat Clearance w eGFR POC Glucometer Random Glucose Calcium Magnesium Total Bilirubin AST ALT Alkaline Phosphatase Total Protein Albumin Vancomycin Pre-Dose HOSPITAL COURSE: Date of Admission:11/08/18 Date of Discharge: 11/10/18 Pre hospital course Patient is a 73 year-old female with a PMH significant for HTN, HLD, Type II NIDDM, stage I lung cancer s/p resection, and anxiety. Patient presented to ED after waking up this morning, had right sided facial swelling and redness. Patient reports right upper lip pimple that started on , went to urgent care, and was prescribed Bactrim. Patient denies fevers, chills, itching or pain. ER course was notable for: (1) WBC 24.8, afebrile (2) Abscess of right upper lip I&D'd by plastic surgeon Dr. Freeman Subsequent hospital course 73 year-old female with a PMH significant for HTN, HLD, Type II NIDDM, stage I lung cancer s/p resection, and anxiety. Admitted for a presumptive MRSA lip abscess and facial cellulitis after failing outpatient PO antibiotic therapy. MRSA right upper lip abscess Right facial cellulitis --WBC 24.8k on admission, trended to 8.4k; afebrile throughout hospital stay --abscess I&D'd by plastics in ED --culture (+) MRSA --received 5 doses vanc with significant improvement in right cheeck cellulitis --discharged with prescription for Bactrim x 7 days --followup appointment with Dr. Freeman this afternoon Type II NIDDM --continued oral agents --Novolog sliding scale coverage Hypertension --continued atenolol, verapamil Hyperlipidemia --continued Lipitor Stage I lung cancer --stable Anxiety --continued Lexapro Minutes to complete discharge: 35 Discharge Summary Reason For Visit: ABSCESS,Cellulitis,Hyperglycemia,Leukocytosis Current Active Problems Facial abscess (Acute) Facial cellulitis (Acute) Condition: Improved - Instructions Diet, Activity, Other Instructions: A prescription has been sent to your pharmacy for Bactrim which is an antibiotic. Take this medication as directed for the next 7 days. Be sure to finish all the medication. You have an appointment TODAY AT 2:00PM with Dr. Freeman. Return to the emergency department for any new or worsening symptoms. Referrals: Boston Freeman MD [Staff Physician] - Disposition: HOME - Home Medications Comprehensive Discharge Medication List: Ambulatory Orders Atenolol [Tenormin -] 25 mg PO DAILY 11/07/18 Cholecalciferol (Vitamin D3) [Vitamin D3] 1,000 unit PO DAILY 11/07/18 Escitalopram Oxalate [Lexapro -] 10 mg PO DAILY 11/07/18 Metformin HCl [Glucophage] 500 mg PO BID 11/07/18 Omeprazole 40 mg PO DAILY 11/07/18 Pravastatin Sodium [Pravachol] 40 mg PO DAILY 11/07/18 Sitagliptin Phosphate [Januvia] 100 mg PO DAILY 11/07/18 Verapamil HCl [Verapamil ER] 2 tab PO DAILY 11/07/18 Sulfamethoxazole/Trimethoprim [Bactrim Ds Tablet] 1 each PO BID #14 tablet 11/10 This patient is new to me today: No Emergency Visit: Yes ED Registration Date: 11/08/18 Care time: The patient presented to the Emergency Department on the above date and was hospitalized for further evaluation of their emergent condition. Critical Care patient: No - Discharge Referral Referred to [facility] Med P.C.: No
[2018-11-10] MEDS: VANCOMYCIN 1 GRAM (PRE-DOCKED) 1,000 MG/250 ML BAG IVPB SCH (12:15)
== END 2018-11-10 12:15 | disposition home or self-care (01) | DRG 603 ==
LOC: SUPCPDRO 08:15 → FER 08:15 → FM/S 11:05 → OBSVTOIN 11-08 12:26
PROVIDERS: ADMIT Internal Medicine; ATTEND Nurse Practitioner Acute Care
PROC: 0C90XZX Drainage of Upper Lip, External Approach, Diagnostic (ICD-10-PCS; principal; 2018-11-07)
DX: L03.211 Cellulitis of face (principal); L02.01 Cutaneous abscess of face; C34.90 Malignant neoplasm of unspecified part of unspecified bronchus or lung; E87.1 Hypo-osmolality and hyponatremia; I10 Essential (primary) hypertension; F41.9 Anxiety disorder, unspecified; E78.5 Hyperlipidemia, unspecified; E11.65 Type 2 diabetes mellitus with hyperglycemia; K13.0 Diseases of lips; B95.62 Methicillin resistant Staphylococcus aureus infection as the cause of diseases classified elsewhere; K21.9 Gastro-esophageal reflux disease without esophagitis
CPT/HCPCS: 36415; 80048; 80053; 82962; 83735; 85025; 87040; 87070; 87186; 87205; 93005; 99283-25; G0378; G0480; J1644; J7030